=== PATIENT | female | born 1990 ===

== ENCOUNTER 2022-06-22 07:16 | Inpatient (IN) | payer OTHER ==
[~2022-06-22] VITALS: Ht 157.5 cm; Wt 3.2 kg
[2022-06-22] MEDS ORDERED: PRENATAL CAPLE1 EAC1 (07:45)
[2022-06-25] MEDS ORDERED: SIMETHICONE80 MG PO (09:19)
[2022-06-25] MEDS ORDERED: COLACE100 MG PO (09:19)
[2022-06-25] MEDS ORDERED: PERCOCET 5-3251 EACH PO (09:19)
[2022-06-25] MEDS ORDERED: IBU800 MG PO (09:19)
== END 2022-06-25 10:59 | disposition home or self-care (01) | DRG 788 ==
LOC: LDR 07:16 → O/R 18:16 → OB/GYN 20:02
PROVIDERS: ADMIT Obstetrics & Gynecology; ATTEND Obstetrics & Gynecology
PROC: 4A1HXCZ Monitoring of Products of Conception, Cardiac Rate, External Approach (ICD-10-PCS; 2022-06-22)
PROC: 10D00Z1 Extraction of Products of Conception, Low, Open Approach (ICD-10-PCS; principal; 2022-06-22 17:45)
DX: O36.8330 Maternal care for abnormalities of the fetal heart rate or rhythm, third trimester, not applicable or unspecified (principal); Z3A.39 39 weeks gestation of pregnancy; Z37.0 Single live birth; Z20.822 Contact with and (suspected) exposure to COVID-19